=== PATIENT | female | born 2000 | race Caucasian/White ===

== ENCOUNTER → 2023-01-13 11:11 | Outpatient (CLI) | payer BC, SELFPAY ==
[2023-01-13 11:21] LABS: Coronavirus 19, PCR Not Detected (NotDetected); Influenza A, PCR Not Detected (NotDetected); Influenza B, PCR Not Detected (NotDetected)
== END ==
PROVIDERS: Physician Assistant; PCP Family Medicine; Visit Provider Family Medicine
DX: Z20.822 Contact with and (suspected) exposure to COVID-19 (principal)
CPT/HCPCS: 87636

== ENCOUNTER 2023-08-09 17:56 | Emergency (ER) | payer OTHER, SELFPAY ==
[2023-08-09 18:00] VITALS: BP 147/90; PULSE 111; RESP 18; TEMP 36.6; O2SAT 97; BMI 33.6
[2023-08-09 18:19] LABS: Apearance,Urine Cloudy (Clear); Color,Urine Orange (Yellow); PH,Urine 5.5 (5.0-8.5); Specific Gravity, Urine 1.015 (1.005-1.030)
[2023-08-09 18:20] LABS: Bilirubin,Urine 1+ (Negative); Blood, Urine 3+ (Negative); Glucose,Urine (UA) 1+ (Negative); Ketones,Urine 15 (Negative); Protein,Urine 3+ (Negative); UTC Leukocyte Esterase,Urine 3+ (Negative); UTC Nitrate,Urine Positive (Negative); Urobilinogen,Urine 2 EU/dl (0.2)
--- NOTE | 2023-08-09 18:28 | ED_ITS ---
Discharge Plan Disposition Patient Disposition: Home, Self-Care Condition: Good Prescriptions Prescriptions: New phenazopyridine [Pyridium] 200 mg tablet 200 mg PO Q8H 2 Days Qty: 6 0RF nitrofurantoin monohyd/m-cryst [Macrobid] 100 mg Capsule 100 mg PO BID Qty: 10 0RF Rx Instructions: must administer with a meal/food No Action levonorgestrel-ethinyl estrad [Vienva] 0.1-20 mg-mcg tablet 1 tab PO DAILY Referrals Follow up/Referrals: Telly Torres MD [Primary Care Provider] - See instructions Activity Restrictions/Add. Instructions Additional Instructions/Restrictions: Drink plenty of fluids. Take tylenol or ibuprofen for pain or fever. Take the medications as directed. Follow up with your regular doctor. GO TO THE ER FOR ANY WORSENING SYMPTOMS The pyridium will make your urine turn orange, this is an expected side effect. It will stain your clothes if it comes into contact with them. We will culture the urine. That will tell what bacteria is causing your infection and which antibiotics will treat it best. Sometimes the first ant ibiotic we prescribe turns out to not work against different bacteria. So, make sure you follow up within 3 days if you are not getting better. Clinical Impressions Clinical Impression: UTI (urinary tract infection) Instructions Patient Instructions: Urinary Tract Infection, DI for Urinary Tract Infection ( UTI) Discharge ED Provider: Davis Bar [facility] [place] HPI General Stated complaint: painful, frequent urination, back apin Mode of Arrival: Ambulatory Source of Information: Patient Limitations: No Limitations Time Seen by Provider: 08/09/23 18:28 Description of Symptoms (Recalled from Triage Doc. by RN): Pt's symptoms are burning with urination, and pelvic pressure. HEENT Symptoms (Recalled from RN notes): No Resp Symptoms (Recalled from RN notes): No Skin Symptoms (Recalled from RN notes): No MS Symptoms (Recalled from RN notes): No Functional Status (Recalled from RN notes): n/a Related Data Home Medications Medication Instructions Recorded Confirmed levonorgestrel-ethinyl estradiol 1 tab PO DAILY 08/09/23 08/09/23 0.1 mg-20 mcg tablet (Vienva) Previous Rx's Medication Instructions Recorded nitrofurantoin 100 mg PO BID #10 caps 08/09/23 monohydrate/macrocrystals 100 mg capsule (Macrobid) phenazopyridine 200 mg tablet 200 mg PO Q8H 2 days #6 tabs 08/09/23 (Pyridium) Allergies Allergy/AdvReac Type Severity Reaction Status Date / Time Penicillins Allergy Hives Verified 08/09/23 18:17 Worker's Comp Is this a Worker's Comp case?: No [facility] Disclaimer: The information contained in this section may have been updated after the patient was seen, as this information can be updated by other users. Social History Smoking Status: Never smoker alcohol intake: never current occupational status: employed Travel in the last 8 weeks: None ROS Obtained: Yes All systems reviewed & no additional complaints except as documented Constitutional Constitutional: Reports system reviewed and no additional complaints, except as documented, Denies chills and Denies fever(s) Eyes Eyes: Denies eye discharge ENT Ears, Nose, Mouth, and Throat: Denies dysphagia, Denies sore throat and Denies throat swelling Cardiovascular Cardiovascular: Denies chest pain and Denies dyspnea Respiratory Respiratory: Denies chest congestion, Denies cough and Denies dyspnea Gastrointestinal Gastrointestingal: Denies abdominal pain, constipation, diarrhea, dysphagia, nausea or vomiting Genitourinary Female Genitourinary: Reports as per HPI, Reports dysuria, Reports urinary frequency, Denies urinary incontinence, Reports urinary hesitancy and Reports urinary urgency Musculoskeletal Musculoskeletal: Denies arthralgias and Reports back pain Integumentary/Breasts Skin/Breast: Denies rash Neurologic Neurologic: Denies paresthesias Allergic/Immunologic Allergic/Immunologic: Denies throat swelling Physical Exam General General appearance: alert and in no apparent distress Head Head exam: atraumatic and normocephalic Eye Eye exam: Present normal appearance, PERRL and EOMI ENT ENT exam: Present normal exam, mucous membranes moist, TM's normal bilaterally and normal external ear exam Neck Neck exam: Present normal inspection, full ROM and trachea midline; Absent tenderness, meningismus or lymphadenopathy Chest Chest inspection: Present normal inspection and symmetric chest wall rise; Absent tenderness Respiratory Respiratory exam: Present normal lung sounds bilaterally; Absent respiratory distress, wheezes or stridor Cardiovascular Cardiovascular exam: Present regular rate, normal rhythm and normal heart sounds Abdominal Exam Abdominal exam: Present soft and normal bowel sounds; Absent distention, tenderness, guarding, rebound, rigidity, incision, psoas sign, obturator sign, heel tap sign, Ortiz's sign, Rovsing's sign or tenderness at McBurney's Point Extremities Exam Extremities exam: Present normal inspection, full ROM and normal capillary refill; Absent tenderness, edema, joint swelling, calf tenderness or cyanosis Back Exam Back exam: Present normal inspection and full ROM; Absent tenderness, CVA ten derness (R) or CVA tenderness (L) Neurological Exam Neurological exam: Present alert, oriented X3 and normal gait Psychiatric Psychiatric exam: Present normal affect and normal mood Skin Skin exam: Present warm, dry, intact and normal color Lymphatic Lymphatic Findings: no adenopathy Medical Decision Making Medical Records Medical records reviewed: No I reviewed the patient's medical records. Marquis Inquiry Pt receiving controlled substance: No Vital Signs: 08/09/23 18:00 Temperature 97.9 F Temperature Source Oral Pulse Rate [Right Radial] 111 H Respiratory Rate 18 Blood Pressure [Right Arm] 147/90 H Blood Pressure Mean [Right Arm] 109 Blood Pressure Source [Right Arm] Automatic Cuff Blood Pressure Position [Right Arm] Sitting 02 Sat by Pulse Oximetry 97 Oxygen Delivery Method Room Air Lab Data Lab results reviewed: Yes I reviewed the patient's lab results. Lab Results 08/09/23 18:18: Urine Color [place], Urine Appearance Cloudy, Urine pH 5.5, Ur Specific [place] 1.015, Urine Protein 3+, Urine Glucose (UA) 1+, Urine Ketones 15, Urine Blood 3+, Urine Nitrate Positive A, Urine Bilirubin 1+ A, Urine Urobilinogen 2, Ur Leukocyte Esterase 3+ A Orders (Tests/Meds): ORDERS Category Date Time Status Urine Culture Stat Micro 08/09/23 18:08 Received
[2023-08-09 18:57] VITALS: BP 147/90; PULSE 111; RESP 18; TEMP 36.6; O2SAT 97
--- NOTE | 2023-08-17 19:50 | PC.NURSE ---
Patient called back stating symptoms were worse. Spoke to ER Attending, Dr. Means and he has given verbal order to call in Cefdinir PO 300mg BID x10 days dispensing 20 capsules. Patient made aware of this. [facility] to [facility].
== END 2023-08-09 18:56 | disposition home or self-care (01) ==
PROVIDERS: Emergency Provider Nurse Practitioner Family; PCP Family Medicine
DX: N39.0 Urinary tract infection, site not specified (principal); B96.29 Other Escherichia coli [E. coli] as the cause of diseases classified elsewhere; R30.0 Dysuria; R10.2 Pelvic and perineal pain; M54.59 Other low back pain
CPT/HCPCS: 81003; 87086; 87088; 87186; 99204; 99212; G0463

== ENCOUNTER 2024-10-31 06:04 | Emergency (ER) | payer SELFPAY ==
[2024-10-31 06:07] VITALS: BP 116/77; PULSE 69; RESP 17; TEMP 37.1; O2SAT 100; BMI 21.4
[2024-10-31 06:15] LABS: Microscopic, Urine URINE MICROSCOPIC (MICROSCOPIC)
[2024-10-31 06:16] LABS: Hematocrit 42.3 % (37.0-47.0); Hemoglobin 14.3 g/dL (12.2-16.2); Immature Granulocytes % 0.2 %; Mean Corpuscular HGB Conc 33.8 g/dL (31.8-35.4); Mean Corpuscular Hemoglobin 31.8 pg (27.0-31.2); Mean Corpuscular Volume 94.2 fl (81-99); Nucleated Red Blood Cells % 0 %; Platelet Count 216 K/mm3 (142-424); Red Blood Count 4.49 M/mm3 (4.20-5.40); Red Cell Distribution Width-SD 46.8 fL; White Blood Count 6.4 K/mm3 (4.8-10.8)
[2024-10-31 06:17] LABS: Bilirubin,Urine Negative (Negative); Color,Urine YELLOW (Yellow); Glucose,Urine (UA) Negative (Negative); Ketones,Urine Negative (Negative); Leukocyte Esterase,Urine Negative (Negative); PH,Urine 6.5 (5.0-8.5); Protein,Urine Negative (Negative); Specific Gravity, Urine 1.010 (1.005-1.030); Urobilinogen,Urine 0.2 EU/dl (0.2)
--- NOTE | 2024-10-31 06:17 | HMH.EDGENADL ---
Discharge Plan Disposition Patient Disposition: Home, Self-Care Prescriptions Prescriptions: No Action levonorgestrel-ethinyl estrad [Vienva] 0.1-20 mg-mcg tablet 1 tab PO DAILY Qty: 84 3RF doxycycline hyclate 100 mg capsule 100 mg PO BID 14 Days Qty: 28 0RF Referrals Follow up/Referrals: Telly Torres MD [Primary Care Provider, Medical] - See instructions Activity Restrictions/Add. Instructions Additional Instructions/Restrictions: Please follow-up with your primary care provider. Please return to the emergency department if you develop any new or worsening symptoms or become concerned for your health. Clinical Impressions Clinical Impression: Malaise and fatigue, Disordered eating Print Language Print Language: Pashto Discharge ED Provider: Boris Schwartz Adult HPI General Chief complaint: Recheck/Abnormal Lab/Rx Stated complaint: Lab Work Time Seen by Provider: 10/31/24 06:05 Mode of Arrival: Ambulatory Source of Information: Patient Description of Symptoms (Recalled from ER Triage Doc. by RN): pt presents to the ED d/t complaints of not knowing what is wrong. pt states she has recently losta a lot of weight. pt states hx of anemia. pt complains of no pain at this time. History of Present Illness HPI narrative: 24-year-old female presents for generalized weakness. She reports that she has lost approximately 120 pounds since February. She reports that she did up by severe calorie restriction, she was only eating approximately 500 hours a day for a long time. She has been working with a field technical support consultant over the last couple of weeks and she has increased her calories to 1300/day. She reports that she feels somewhat bloated and feels like something is not right. She does have a PCP but has been unable to get into see them and is planning on switching PCPs. She is worried she could be because her periods have been irregular. She understands that what she has been doing is not healthy and is working to improve it. Related Data Previous Rx's ?Medication ?Instructions ?Recorded levonorgestrel-ethinyl estradiol 1 tab PO DAILY #84 tabs 01/02/24 0.1 mg-20 mcg tablet (Vienva) doxycycline hyclate 100 mg capsule 100 mg PO BID 14 days #28 caps 09/12/24 Allergies Allergy/AdvReac Type Severity Reaction Status Date / Time Penicillins Allergy Hives Verified 10/18/23 08:46 [facility] Disclaimer: The information contained in this section may have been updated after the patient was seen, as this information can be updated by other users. Medical History (Updated 10/31/24 @ 06:39 by Boris Schwartz MD) Anemia Surgical History (Updated 10/18/23 @ 08:47 by TOMAS Lopez) No pertinent past surgical history Family History (Updated 10/18/23 @ 08:50 by TOMAS Lopez) Brother Adopted Asthma Grandmother Anemia Grandfather Cancer Social History (Updated 10/18/23 @ 08:50 by TOMAS Lopez) Smoking Status: Current some day smoker tobacco type: e-cigarettes alcohol intake: never current occupational status: employed Travel in the last 8 weeks?: None Have you lived/traveled outside [place] in past 30 days?: No Contact w/someone who lives/traveled outside US past 30 days?: No Exposure to someone with infectious disease in past 14 days?: No Do you have a fever (greater than 100.4 F or 38 C)?: No Have you tested positive for COVID-19?: No Exposed to someone with COVID-19 in past 14 days?: No Do you have a sore throat?: No Do you have a cough?: No Do you have any weakness?: No Do you have any diarrhea?: No Are you experiencing any unusual bleeding?: No Do you have any muscle aches/pain?: No Do you have any abdominal pain?: No Are you experiencing loss of taste or smell?: No Other Medical History Have you received the Flu Vaccine for this season: No Have you received the Pneumonia Vaccine: No ROS Obtained: Yes All systems reviewed & no additional complaints except as documented Physical Exam General General appearance: alert and in no apparent distress Comment: Thin appearing Head Head exam: atraumatic and normocephalic Eye Eye exam: Present normal appearance, PERRL and EOMI ENT ENT exam: Present normal oropharynx and normal external ear exam Neck Neck exam: Present normal inspection and full ROM Chest Chest inspection: Present normal inspection and symmetric chest wall rise; Absent tenderness Respiratory Respiratory exam: Present normal lung sounds bilaterally; Absent respiratory distress Cardiovascular Cardiovascular exam: Present normal rhythm and bradycardia Abdominal Exam Abdominal exam: Present soft; Absent distention, tenderness or guarding Extremities Exam Extremities exam: Present normal inspection; Absent edema or joint swelling Back Exam Back exam: Present normal inspection; Absent tenderness Neurological Exam Neurological exam: Present alert and oriented X3; Absent motor sensory deficit Psychiatric Psychiatric exam: Present normal affect and normal mood Skin Skin exam: Present warm, dry and normal color Lymphatic Lymphatic Findings: no adenopathy Medical Decision Making Medical Records Medical records reviewed: Yes I reviewed the patient's medical records. Screening: Per USPSTF and CDC recommendations, given the prevalence of disease in our region, it is our hospital?s policy to screen for HIV and viral Hepatitis for all patients aged 18 and over and those with ongoing risk factors. Marquis Inquiry Pt receiving controlled substance: No Marquis was queried for this patient: No Vital Signs: 10/31/24 06:07 Temperature 98.7 F Temperature Source Oral Pulse Rate [Right Radial] 69 Respiratory Rate 17 Blood Pressure [Right Arm] 116/77 Blood Pressure Mean [Right Arm] 90 Blood Pressure Position [Right Arm] Supine 02 Sat by Pulse Oximetry 100 Oxygen Delivery Method Room Air Lab Data Lab results reviewed: Yes I reviewed the patient's lab results. Lab Results 10/31/24 06:08: WBC 6.4, RBC 4.49, Hgb 14.3, Hct 42.3, MCV 94.2, MCH 31.8 H, MCHC 33.8, RDW 13.4, Plt Count 216, MPV 10.1, Neut % (Auto) 51.7, Lymph % (Auto) 34.9, [place] % (Auto) 5.2, Eos % (Auto) 7.4, Baso % (Auto) 0.6, Neut # (Auto) 3.3, Lymph # (Auto) 2.2, [place] # (Auto) 0.3, Eos # (Auto) 0.5 H, Baso # (Auto) 0.0, Sodium 138, Potassium 3.9, Chloride 101, Carbon Dioxide 28, Anion Gap 12.9, BUN 21 H, Creatinine 0.80, Estimated Creat Clear 107, Estimated GFR 89, Est GFR ( Amer) 108, Glucose 100, Calcium 9.8, Phosphorus 3.3, Magnesium 2.1, Total Bilirubin 0.4, AST 56 H, ALT 27, Alkaline Phosphatase 62, Total Protein 7.6, Albumin 4.8, Globulin 2.8, Albumin/Globulin Ratio 1.7, Thyroxine (T4) 9.9, Serum HCG, Qual Negative, Urine Color Yellow, Urine Appearance Clear, Urine pH 6.5, Ur Specific [place] 1.010, Urine Protein Negative, Urine Glucose (UA) Negative, Urine Ketones Negative, Urine Blood Negative, Urine Nitrate Negative, Urine Bilirubin Negative, Urine Urobilinogen 0.2, Ur Leukocyte Esterase Negative 10/31/24 06:08 10/31/24 06:08 Orders (Tests/Meds): ORDERS Category Date Time Status CBC w/Auto Diff [Complete Blood Count Auto Diff] Stat Lab 10/31/24 06:08 Completed CMP [Comprehensive Metabolic Panel] Stat Lab 10/31/24 06:08 Results HCG Qualitative, Serum Stat Lab 10/31/24 06:08 Completed Magnesium Stat Lab 10/31/24 06:08 Results Phosphorous Stat Lab 10/31/24 06:08 Completed T4 (Thyroxine) Stat Lab 10/31/24 06:08 Results TSH [Thyroid Stimulating Hormone] Stat Lab 10/31/24 06:08 Results UA [Urinalysis and Microscopic] Stat Lab 10/31/24 06:08 Results EKG Request [ECG Request] Stat Y 10/31/24 06:16 Ordered Medical Decision Narrative: 24-year-old female with history of significant weight loss over the last 6 months due to calorie restriction, recently upped her calories as a part of a plan to get healthy, presents for generalized weakness and feeling off. History was obtained via interactive discussion with patient, chart review. On arrival, patient is [afebrile, hemodynamically stable, satting appropriately, alert, oriented x4, GCS 15], moving all extremities spontaneously. Full physical exam performed and significant for clear lungs bilaterally, clear heart sounds. Differential includes but is not limited to anemia, electrolyte derangement, heart block, thyroid abnormality. Workup initiated including CBC, CMP, mag, Phos, TSH, T4, serum test, EKG UA. On re-evaluation, patient [remains afebrile, HD stable.] Laboratory workup independently interpreted by me and significant for hemoglobin 14.3, BUN and AST mildly elevated, otherwise unremarkable PE, urinalysis without evidence of infection, test negative, thyroid studies unremarkable.. EKG independently interpreted by me and significant for sinus bradycardia with sinus arrhythmia, rate of 49, interpreted at 620. No evidence of emergent pathology on lab workup. Patient is aware of the severity and danger of her calorie restriction and reports that she is now working with a field technical support consultant to improve it. I encouraged her to continue increasing her calories to get to a healthier weight, and she is going to try to follow-up/initiate care with PCP. Patient was discharged in stable condition with return precautions. Procedures Risk/Benefits of Procedure(s) Were Explained: Yes Critical Care Critical Care Time Critical Care Time: No
[2024-10-31 06:20] LABS: Albumin Level 4.8 g/dl (3.5-5.0); Chloride 101 mmol/L (98-107); Potassium 3.9 mmoL/L (3.5-5.1); Sodium 138 mmol/L (136-145)
--- NOTE | 2024-10-31 06:20 | ECG_ITS ---
APPROVED REPORT Exam: Resting ECG HR:49 bpm ECG Measurements Heart Rate 49 AXES MS 139 P 55 QRSd 104 QRS 86 QT 386 T 64 QTc 357 Conclusion SINUS BRADYCARDIA WITH SINUS ARRHYTHMIA BORDERLINE ECG Electronically signed by : HEAVEN TY, 10/31/2024 21:54:41
[2024-10-31 06:23] LABS: Alanine Aminotransferase 27 U/L (12-78); Albumin/Globulin Ratio 1.7 (1.1-1.8); Alkaline Phosphatase 62 U/L (38-126); Anion Gap 12.9 mEq/L (5-15); Aspartate Amino Transferase 56 U/L (14-36); Bilirubin,Total 0.4 mg/dl (0.2-1.3); Blood Urea Nitrogen 21 mg/dl (7-17); Calcium 9.8 mg/dl (8.4-10.2); Carbon Dioxide 28 mmol/L (22.0-30.0); Creatinine Clearance Estimated 107 mL/min (50-200); Creatinine,Serum 0.80 mg/dl (0.52-1.04); Estimated Glomerular Filt Rate 89 ml/min (>60); GFR (African American) 108 ML/MIN (>60); Globulin 2.8 g/dL (1.3-3.2); Glucose 100 mg/dl (74-100); Magnesium 2.1 mg/dl (1.6-2.3); Total Protein,Serum 7.6 g/dl (6.3-8.2)
[2024-10-31 06:33] LABS: HCG Qualitative, Serum Negative (Negative)
[2024-10-31 06:41] LABS: T4 (Thyroxine) 9.9 ug/dl (5.53-11.0)
--- NOTE | 2024-10-31 06:43 | PC.NURSE ---
critical called from lab aware
[2024-10-31 06:48] LABS: Phosphorous 3.3 mg/dl (2.5-4.5)
[2024-10-31 06:54] LABS: Thyroid Stimulating Hormone 1.83 uIU/mL (0.465-4.68)
[2024-10-31 07:03] VITALS: BP 142/82; PULSE 68; RESP 14; TEMP 36.6; O2SAT 98
[2024-10-31 07:04] VITALS: BP 128/78; PULSE 68; RESP 16; TEMP 36.4; O2SAT 98
[2024-10-31 07:08] LABS: Squamous Epithelial Cell,Urine Occasional #/hpf (0-5)
== END 2024-10-31 07:05 | disposition home or self-care (01) ==
LOC: ER 06:04
PROVIDERS: Emergency Provider Emergency Medicine; PCP Family Medicine; Visit Provider Emergency Medicine
DX: R00.1 Bradycardia, unspecified (principal); R53.81 Other malaise; E46 Unspecified protein-calorie malnutrition; R53.1 Weakness; F17.290 Nicotine dependence, other tobacco product, uncomplicated
CPT/HCPCS: 80053; 81001; 83735; 84100; 84436; 84443; 84703; 85025; 93005; 99283